=== PATIENT | female | born 1985 | race Hispanic/Latino ===

== ENCOUNTER 2022-08-29 10:26 | Emergency (ER) | payer SELFPAY ==
[~2022-08-29] VITALS: Ht 162.6 cm; Wt 69.4 kg
[~2022-08-29 10:26] MED LIST: CEPHALEXIN500 MG OR; PRENATA6 OR
[2022-08-29 11:48] LABS: BASO% 0.1 % (0-3); EOS% 0.6 % (0-8); HEMOGLOBIN 13.8 g/dl (12.0-16.0); IMMATURE GRANULOCYTES 0.1 % (0.0-5.0); LYMPH% 24.4 % (15-41); MEAN CELL VOLUME 90.8 fL CALC (80.0-100.0); MEAN CORPUSCULAR HGB 30.1 pG CALC (26.0-32.0); MEAN CORPUSCULAR HGB CONC 33.1 g/dL CAL (32.0-36.0); MONO% 4.7 % (2-13); NEUT# 8.12 thou/uL (2.00-7.15); NEUT% 70.1 % (42-76); RED BLOOD COUNT 4.59 mill/uL (4.20-5.60); RED CELL DISTRI WIDTH 12.8 % (11.5-15.5)
[2022-08-29 11:55] LABS: HEMATOCRIT 41.7 % (37.0-47.0)
[2022-08-29 12:07] LABS: ANION GAP 11 (6-22 (CALC)); BUN 7 mg/dL (7-17); BUN/CREATININE RATIO 12 (12-20 (CALC)); CARBON DIOXIDE 25 mmol/l (22-30); CHLORIDE 106 mmol/l (95-108); CREATININE 0.6 mg/dL (0.5-1.0); GFR FOR AFR.AMER. > 60 ML/MIN (>=60 (CALC)); GFR OTHER RACES > 60 ML/MIN (>=60 (CALC)); LIPASE 57 u/l (23-300); POTASSIUM 3.8 mmol/l (3.5-5.1); SGOT/AST 28 u/l (14-36); SODIUM 138 mmol/l (137-146); TOTAL PROTEIN 8.2 g/dL (6.3-8.2)
[2022-08-29 12:09] LABS: ALBUMIN 4.6 g/dL (3.2-5.0); ALKALINE PHOSPHATASE 64 u/l (38-126); BILIRUBIN, TOTAL 0.4 mg/dL (0.02-1.3)
[2022-08-29] MEDS ORDERED: PROTONIX40 M2 PO (13:47)
[2022-08-29] MEDS ORDERED: DECADRON4 MG PO (13:47)
[2022-08-29 13:52] VITALS: BP 138/76
== END 2022-08-29 14:00 | disposition home or self-care (01) | DRG 916 ==
LOC: ED 10:26
PROVIDERS: Emergency Medicine
DX: T78.3XXA Angioneurotic edema, initial encounter (principal); K21.9 Gastro-esophageal reflux disease without esophagitis
CPT/HCPCS: J1100

== ENCOUNTER 2023-03-20 09:56 | Emergency (ER) | payer SELFPAY ==
[2023-03-20] VITALS (10 sets, daily range): BP systolic 114–133; BP diastolic 67–97
[~2023-03-20] VITALS: Ht 162.6 cm; Wt 70.0 kg
[~2023-03-20 09:56] MED LIST changes: +DECADRON4 MG PO; +PROTONIX40 M2 PO
[2023-03-20 10:56] LABS: BASO% 0.5 % (0-3); EOS% 3.8 % (0-8); HEMATOCRIT 39.9 % (37.0-47.0); HEMOGLOBIN 13.2 g/dl (12.0-16.0); IMMATURE GRANULOCYTES 0.1 % (0.0-5.0); LYMPH% 23.2 % (15-41); MEAN CELL VOLUME 91.5 fL CALC (80.0-100.0); MEAN CORPUSCULAR HGB 30.3 pG CALC (26.0-32.0); MEAN CORPUSCULAR HGB CONC 33.1 g/dL CAL (32.0-36.0); MONO% 5.8 % (2-13); NEUT# 7.14 thou/uL (2.00-7.15); NEUT% 66.6 % (42-76); RED BLOOD COUNT 4.36 mill/uL (4.20-5.60)
[2023-03-20 11:08] LABS: ALBUMIN 4.4 g/dL (3.2-5.0); ALKALINE PHOSPHATASE 57 u/l (38-126); ANION GAP 14 (6-22 (CALC)); BUN 6 mg/dL (7-17); BUN/CREATININE RATIO 11 (12-20 (CALC)); CARBON DIOXIDE 22 mmol/l (22-30); CHLORIDE 108 mmol/l (95-108); CREATININE 0.5 mg/dL (0.5-1.0); GFR FOR AFR.AMER. > 60 ML/MIN (>=60 (CALC)); GFR OTHER RACES > 60 ML/MIN (>=60 (CALC)); POTASSIUM 3.9 mmol/l (3.5-5.1); SGOT/AST 26 u/l (14-36); SODIUM 139 mmol/l (137-146)
[2023-03-20 11:13] LABS: BILIRUBIN, TOTAL 0.6 mg/dL (0.02-1.3)
[2023-03-20] MEDS ORDERED: MECLIZINE HYD12.5 MG PO (12:37)
== END 2023-03-20 12:48 | disposition home or self-care (01) | DRG 149 ==
LOC: ED 09:56
PROVIDERS: Family Medicine
DX: R42 Dizziness and giddiness (principal)